=== PATIENT | male | born 1990 | race Caucasian/White ===

== ENCOUNTER 2024-04-10 18:48 | Emergency (ER) | payer OTHER, MEDICAID, SELFPAY ==
[2024-04-10 18:59] VITALS: BP 127/88; PULSE 87; RESP 18; TEMP 36.5; O2SAT 98
[2024-04-10 19:09] VITALS: O2SAT 98
[2024-04-10] MEDS: predniSONE 20 MG TAB 40 MG PO (19:09)
--- NOTE | 2024-04-10 19:09 | ED.GENADUL_ITS ---
Discharge Plan Disposition Patient Disposition: Home Condition: Improving Discharge Details Chief Complaint: RespSymp Clinical Impression: Viral URI Primary Care Provider: Stefany,Local ED Provider: Parker Espinal Home Meds and New Rx's Prescriptions: No Action cephalexin 500 MG capsule 500 mg PO QID Qty: 6 0RF Discharge Instructions Instructions: Upper Respiratory Infection ED Additional Instructions: Please follow with your primary care physician. Please return to the emergency department for any worsening symptoms HPI General Date/Time Provider Initiated Documentation: 04/10/24 18:59 . HPI Narrative: 33-year-old male presents with upper respiratory symptoms cough and congestion over the last couple of days. Of note his family has similar symptomatology. Negative COVID test at home. Related Data Home Medications ?Medication ?Instructions ?Recorded ?Confirmed cephalexin 500 mg capsule 500 mg PO QID #6 caps 12/09/16 12/13/16 Previous Rx's ?Medication ?Instructions ?Recorded cephalexin 500 mg capsule 500 mg PO QID #6 caps 12/09/16 Allergies Allergy/AdvReac Type Severity Reaction Status Date / Time No Known Allergies Allergy Unverified 12/13/16 19:42 General Stated Complaint: RespSymp THIEN: 3 Exam Narrative Exam Narrative: Alert interactive no acute distress Moist mucous membranes tolerating secretions Normal voice no stridor Normal heart sounds no murmurs rubs or gallops Lungs clear bilaterally no wheezes rales or rhonchi Normal tone interactive ambulatory without assistance Course Vital Signs Vital signs: Vital Signs Temperature 36.5 C 04/10/24 18:59 Pulse 87 04/10/24 18:59 Respiratory Rate 18 04/10/24 18:59 Blood Pressure 127/88 04/10/24 18:59 Pulse Oximetry 98 04/10/24 18:59 Temperature 36.5 C 04/10/24 18:59 Temperature Source Temporal Artery Scan 04/10/24 18:59 Pulse 87 04/10/24 18:59 Respiratory Rate 18 04/10/24 18:59 Blood Pressure 127/88 04/10/24 18:59 Pulse Oximetry 98 04/10/24 18:59 Oxygen Delivery Method Room Air 04/10/24 18:59 Oxygen Flow Rate 0 04/10/24 18:59 Pain Level 0 04/10/24 18:59 Medical Decision Making 33-year-old male presents with viral URI, afebrile nontoxic nonhypoxic nontachypneic, normotensive, lungs clear bilaterally no respiratory distress. Of note family with similar symptomatology. Low clinical suspicion for bacterial pneumonia PE ACS or aortic pathology. Trial of steroid. Home care instructions and return precautions given Quality:SDOH Health Related Social Needs: No Data to Display PFSH All Active Problems (Updated 04/10/24 @ 19:11 by Parker Espinal MD) Viral URI (Acute) Social History Smoking risk assessment performed?: No Do you feel safe in your relationship?: Yes
== END 2024-04-10 19:22 | disposition home or self-care (01) ==
LOC: ER 19:26
PROVIDERS: Emergency Provider Emergency Medicine
DX: J06.9 Acute upper respiratory infection, unspecified (principal); B97.89 Other viral agents as the cause of diseases classified elsewhere
CPT/HCPCS: 99283; J7512

== ENCOUNTER 2025-01-11 13:26 | Outpatient (CLI) | payer OTHER, MEDICAID, SELFPAY ==
[2025-01-11 10:34] LABS: Hemoglobin A1C 5.1 % (<5.7)
[2025-01-11 11:08] LABS: ALT 51 U/L (16-63); AST 23 U/L (15-37); Albumin 4.3 g/dL (3.4-5.0); Alkaline Phosphatase 58 U/L (46-116); Anion Gap 6.1 mmol/L (3-11); BUN 10 mg/dL (7-18); Bilirubin, Total 0.5 mg/dL (0.2-1.0); CO2 29.9 mmol/L (21.0-32.0); Calcium 9.6 mg/dL (8.5-10.1); Calculated LDL 96 mg/dL (<100); Chloride 104 mmol/L (98-107); Cholesterol 152 mg/dL (<200); Estimated GFR 90.90 (mL/min/1.73m2); Glucose 98 mg/dL (74-106); HDL Cholesterol 44 mg/dL (>or=40); Potassium 4.2 mmol/L (3.5-5.1); Sodium 140 mmol/L (136-145); TSH (W/Ref FT4) 1.19 uIU/mL (0.36-3.74); Total Protein 8.0 g/dL (6.4-8.2); Triglyceride 61 mg/dL (<150)
== END 2025-01-11 13:27 | disposition home or self-care (01) ==
LOC: LBO 13:27
PROVIDERS: PCP Nurse Practitioner Family; Visit Provider Nurse Practitioner Family
DX: Z13.1 Encounter for screening for diabetes mellitus (principal); E66.9 Obesity, unspecified; E03.9 Hypothyroidism, unspecified; Z13.220 Encounter for screening for lipoid disorders
CPT/HCPCS: 36415; 80053; 80061; 83036; 84443

== ENCOUNTER 2025-04-13 15:35 | Emergency (ER) | payer OTHER, MEDICAID, SELFPAY ==
--- NOTE | 2025-04-13 15:30 | DI.RAD_ITS ---
Exam(s) XR PORTABLE CHEST AP EXAM: XR PORTABLE CHEST AP CLINICAL HISTORY: vomiting TECHNIQUE: 2D digital imaging was performed. COMPARISON: No exams were available for comparison FINDINGS: LUNGS: Clear. No pleural abnormality seen. HEART: Normal size. AORTA: Normal diameter. BONES: Unremarkable for age. Soft tissues: The stomach is not fully included on the exam however appears somewhat distended. IMPRESSION: Question of a distended stomach. DATA REPOSITORY: RADIATION DOSE DELIVERED:
[2025-04-13 15:37] VITALS: BP 99/66; PULSE 106; RESP 18; TEMP 36.4; O2SAT 95
[2025-04-13 15:40] VITALS: BP 99/66; PULSE 106; RESP 18; TEMP 36.4; O2SAT 95
[2025-04-13] MEDS: Normal Saline 1,000 ML 1000 ML IV (16:04)
[2025-04-13] MEDS: Droperidol 5 MG/2 ML VIAL 2.5 MG IVP (16:04)
[2025-04-13 16:07] LABS: Abs Immature Grans 0.01 10^3/uL (0.0-0.06); HCT 45.7 % (40.0-50.0); HGB 16.2 g/dL (13.5-17.5); Immature Grans % 0.2 %; MCH 28.4 pg (27.0-33.0); MCHC 35.4 % (32.0-36.0); MCV 80 fL (80-95); MPV 9.8 fL (8.0-11.0); Platelet Count 258 10^3/uL (130-400); RBC 5.71 10^6/uL (4.36-5.78); RDW 13.2 % (11.8-14.1); RDW-SD 38.1 fL; WBC 5.82 10^3/uL (4.4-10.8)
[2025-04-13 16:40] LABS: ALT 44 U/L (16-63); AST 21 U/L (15-37); Albumin 5.0 g/dL (3.4-5.0); Alkaline Phosphatase 65 U/L (46-116); Anion Gap 12.7 mmol/L (3-11); BUN 17 mg/dL (7-18); Bilirubin, Total 0.7 mg/dL (0.2-1.0); CO2 28.3 mmol/L (21.0-32.0); Calcium 9.5 mg/dL (8.5-10.1); Chloride 97 mmol/L (98-107); Estimated GFR 81.89 (mL/min/1.73m2); Glucose 91 mg/dL (74-106); Potassium 3.5 mmol/L (3.5-5.1); Sodium 138 mmol/L (136-145); Total Protein 9.2 g/dL (6.4-8.2)
--- NOTE | 2025-04-13 23:21 | ED.GENADUL_ITS ---
Discharge Plan Disposition Patient Disposition: Home Discharge Details Clinical Impression: Nausea vomiting and diarrhea Primary Care Provider: Raheem Weinberg ED Provider: Simeon Vigil Home Meds and New Rx's Prescriptions: No Action venlafaxine [Effexor XR] 75 mg capsule,extended release 24hr 75 mg PO DAILY Qty: 90 3RF tirzepatide (weight loss) 5 mg/0.5 mL pen injector 5 mg subcut QWEEK Qty: 2 0RF Rx Instructions: for 4 weeks Discharge Instructions Instructions: Nausea and Vomiting, Adult ED Additional Instructions: Please follow-up with your primary care provider regarding your visit to the emergency department today. Be sure to discuss results of all test performed here today to include radiology, and laboratory testing as well as results for any pending cultures. As discussed, I have suspicion that the tirzepatide that you are taking may be playing a role in your symptoms, I would recommend discontinuing that medication until you are feeling better. Similarly if you are taking antidiarrheal medications like Imodium I would also stop taking those until you are back to your normal self. Should your symptoms worsen, or if you develop new concerning symptoms, please return immediately emergency department for further evaluation. Discharge Data Discharge Date/Time-TO BE ENTERED AT DEPARTURE: 04/13/25 17:54 HPI General Date/Time Provider Initiated Documentation: 04/13/25 15:37 . HPI Narrative: MDM/Narrative: 34-year-old male presents for nausea vomiting diarrhea x 3 days. Vital signs notable for mild tachycardia, abdominal exam reassuring. Suspect viral syndrome versus medication adverse reaction based on history. However will screen for other acute intra-abdominal pathology such as acute appendicitis, SBO. ED course: Labs are unremarkable. Chest x-ray shows significantly distended stomach consistent with delayed gastric MPM likely secondary to patient's weight loss medications. On reassessment patient notes significant improvement of nausea following administration of droperidol. Plan of care discussed with the patient who is agreeable plan for discharge. Clinical impression: Nausea vomiting diarrhea Disposition: Home HPI: The patient is a 34-year-old male presenting with nausea, emesis, and diarrhea persisting for four days. The onset of symptoms occurred on April 10, 2025, initially characterized by the emesis of clear liquid, followed by concurrent emesis and diarrhea on April 11, 2025. He reports intensified borborygmi post-ingestion of water, necessitating immediate defecation. Symptomatic relief is noted in the supine position, with exacerbation upon standing. The patient is afebrile with a recorded temperature of 99?F and denies chills, cough, dysuria, myalgia, or cephalalgia. There is no history of recent illness within the household. The patient has no known drug allergies and has never been hospitalized. Dietary intake included rice and green beans on April 08, 2025, with subsequent emesis of green beans on April 10, 2025. He has been self- administering loperamide (Imodium) and ondansetron (Zofran) without symptomatic relief. The last episode of emesis occurred on April 11, 2025, and he took ondansetron an hour prior to presentation for nausea. He denies hematemesis or melena. The patient commenced semaglutide (Wegovy) for weight management two months ago without adverse effects and started venlafaxine (Effexor) 75 mg two months ago, noting increased daytime fatigue. ROS: Negative besides as mentioned above Exam: Vital signs: Reviewed. General Appearance: Alert and oriented. No acute distress. HEENT: NCAT, EOMI, not icteric. External ears normal. No rhinorrhea. Moist mucous membranes. Neck: Supple, full range of motion, no observable masses, No meningeal sign. Respiratory: No Respiratory distress. No tachypnea. Cardiovascular: Slightly elevated heart rate. Gastrointestinal: Soft, nontender abdomen. Back: No midline tenderness to palpation or palpable step-offs of the C/T/L spine. Skin: Warm and dry, no rash. Neurological: Normal Gait, Grossly intact. Psychiatric: Appropriate for situation. Labs: Laboratory Tests Range/Units 04/13/25 15:00 WBC (4.4-10.8) 10^3/uL 5.82 RBC (4.36-5.78) 10^6/uL 5.71 Hgb (13.5-17.5) g/dL 16.2 Hct (40.0-50.0) % 45.7 MCV (80-95) fL 80 MCH (27.0-33.0) pg 28.4 MCHC (32.0-36.0) % 35.4 RDW (11.8-14.1) % 13.2 Plt Count (130-400) 10^3/uL 258 MPV (8.0-11.0) fL 9.8 Immature Gran % % 0.2 Neutrophils % % 59.1 Lymphocytes % % 27.0 Monocytes % % 8.9 Eosinophils % % 3.8 Basophils % % 1.0 Nucleated RBC % (0.0-0.3) % 0.0 Absolute Neutrophils (1.2-6.7) 10^3/uL 3.44 Absolute Lymphocytes (1.2-3.4) 10^3/uL 1.57 Absolute Monocytes (0.1-0.8) 10^3/uL 0.52 Absolute Eosinophils (0.0-0.7) 10^3/uL 0.22 Absolute Basophils (0.0-0.2) 10^3/uL 0.06 VBG Lactate (<or=2.0) mmol/L 1.0 Sodium (136-145) mmol/L 138 Potassium (3.5-5.1) mmol/L 3.5 Chloride (98-107) mmol/L 97 L Carbon Dioxide (21.0-32.0) mmol/L 28.3 Anion Gap (3-11) mmol/L 12.7 H BUN (7-18) mg/dL 17 Creatinine (0.70-1.30) mg/dL 1.2 Est GFR (CKD-EPI 2020) (mL/min/1.73m2) 81.89 Glucose (74-106) mg/dL 91 Calcium (8.5-10.1) mg/dL 9.5 Total Bilirubin (0.2-1.0) mg/dL 0.7 AST (15-37) U/L 21 ALT (16-63) U/L 44 Alkaline Phosphatase (46-116) U/L 65 Total Protein (6.4-8.2) g/dL 9.2 H Albumin (3.4-5.0) g/dL 5.0 Radiology: Chest x-ray portable AP: No acute cardiopulmonary process, noted stomach distention as read by me Related Data Home Medications ?Medication ?Instructions ?Recorded ?Confirmed venlafaxine 75 mg capsule,extended 75 mg PO DAILY #90 caps 02/26/25 04/13/25 release 24 hr (Effexor XR) tirzepatide (weight loss) 5 mg/0.5 5 mg (0.5 mL) subcu t QWEEK #2 mL 03/10/25 04/13/25 mL subcutaneous pen injector Previous Rx's ?Medication ?Instructions ?Recorded venlafaxine 75 mg capsule,extended 75 mg PO DAILY #90 caps 02/26/25 release 24 hr (Effexor XR) tirzepatide (weight loss) 5 mg/0.5 5 mg (0.5 mL) subcu t QWEEK #2 mL 03/10/25 mL subcutaneous pen injector Allergies Allergy/AdvReac Type Severity Reaction Status Date / Time No Known Allergies Allergy Unverified 04/13/25 15:39 General Stated Complaint: Nausea/Vomit/Diar THIEN: 3 Course Vital Signs Vital signs: Vital Signs Temperature 36.4 C 04/13/25 15:37 Pulse 106 H 04/13/25 15:37 Respiratory Rate 18 04/13/25 15:37 Blood Pressure 99/66 L 04/13/25 15:37 Pulse Oximetry 95 04/13/25 15:37 Temperature 36.4 C 04/13/25 15:40 Temperature Source Oral 04/13/25 15:40 Pulse 106 H 04/13/25 15:40 Respiratory Rate 18 04/13/25 15:40 Blood Pressure 99/66 L 04/13/25 15:40 Pulse Oximetry 95 04/13/25 15:40 Lab/Test Results Lab/Test Results: Laboratory Tests Range/Units 04/13/25 15:00 WBC (4.4-10.8) 10^3/uL 5.82 RBC (4.36-5.78) 10^6/uL 5.71 Hgb (13.5-17.5) g/dL 16.2 Hct (40.0-50.0) % 45.7 MCV (80-95) fL 80 MCH (27.0-33.0) pg 28.4 MCHC (32.0-36.0) % 35.4 RDW (11.8-14.1) % 13.2 Plt Count (130-400) 10^3/uL 258 MPV (8.0-11.0) fL 9.8 Immature Gran % % 0.2 Neutrophils % % 59.1 Lymphocytes % % 27.0 Monocytes % % 8.9 Eosinophils % % 3.8 Basophils % % 1.0 Nucleated RBC % (0.0-0.3) % 0.0 Absolute Neutrophils (1.2-6.7) 10^3/uL 3.44 Absolute Lymphocytes (1.2-3.4) 10^3/uL 1.57 Absolute Monocytes (0.1-0.8) 10^3/uL 0.52 Absolute Eosinophils (0.0-0.7) 10^3/uL 0.22 Absolute Basophils (0.0-0.2) 10^3/uL 0.06 VBG Lactate (<or=2.0) mmol/L 1.0 Sodium (136-145) mmol/L 138 Potassium (3.5-5.1) mmol/L 3.5 Chloride (98-107) mmol/L 97 L Carbon Dioxide (21.0-32.0) mmol/L 28.3 Anion Gap (3-11) mmol/L 12.7 H BUN (7-18) mg/dL 17 Creatinine (0.70-1.30) mg/dL 1.2 Est GFR (CKD-EPI 2020) (mL/min/1.73m2) 81.89 Glucose (74-106) mg/dL 91 Calcium (8.5-10.1) mg/dL 9.5 Total Bilirubin (0.2-1.0) mg/dL 0.7 AST (15-37) U/L 21 ALT (16-63) U/L 44 Alkaline Phosphatase (46-116) U/L 65 Total Protein (6.4-8.2) g/dL 9.2 H Albumin (3.4-5.0) g/dL 5.0 PFSH All Active Problems (Updated 04/13/25 @ 23:24 by Simeon Vigil MD) Nausea vomiting and diarrhea (Acute) Anxiety (Chronic) Obesity (BMI 35.0-39.9 without comorbidity) (Acute) Medical History (Updated 04/13/25 @ 23:24 by Simeon Viigl MD) Leg fracture DVT (deep venous thrombosis) Family History (Updated 12/15/24 @ 12:08 by Tiana Blanco RN) Mother Hypertension Hyperlipidemia Father No problems noted. Brother Cerebral palsy Maternal Grandmother No problems noted. Maternal Grandfather No problems noted. Paternal Grandmother No problems noted. Paternal Grandfather No problems noted. Social History (Updated 12/15/24 @ 12:07 by Tiana Blanco RN) Smoking/Tobacco Use Status: Never Smoking risk assessment performed?: Yes Alcohol Intake: current Alcohol Intake frequency: holidays/special occasions only Drug use: Never Substance use type: does not use Adopted: No Caregiver/Support person: No Household members: spouse and children Housing: house Number of Children: 2 number of grandchildren: 0 Communication Needs: None Education Level: high school Do you need help understanding health information?: Never current occupation: dedicated intermodal truck driver Sexually active: Yes Do you think of yourself as: straight/heterosexual Current gender identity: male What is your relationship status?: How often do you talk on the phone with friends or family?: three or more times per week How often do you get together with friends or relatives?: three or more times per week How often do you attend worship or jehovah's witness services?: decline to answer Do you belong to any clubs or organized social groups?: no Panel score (0-1 are the most socially isolated patients): 2 NHANES result reviewed/action taken: Yes Duration: < 15 minutes/day Frequency: 1-2 times per week Shelli/Cheondoism: None Special shelli needs: No Seatbelt use: always Helmet use: Yes Helmet use: always Drive intox or ride w/intox wagon driver salesperson: No Working smoke detector in home: Yes Carbon monox detector in home: Yes Firearms in home: Yes Firearms unloaded and locked: Yes Do you feel safe at home: Yes Do you feel safe in your relationship?: Yes Victim of physical abuse: No Victim of emotional abuse: No Victim of sexual abuse: No Would you like helpful sources: No PAWSS Have you Been Recently Intoxicated or Drunk Within the Last 30 days?: No Have you Ever Experienced Previous Episodes of Alcohol Withdrawal?: No Have you ever Experienced Withdrawal Seizures?: No Have you ever Experienced Delirium Tremens(DT)s?: No Have you ever undergone Alcohol Rehabilitation Treatment (i.e, inpt ot outpatient treatment programs)?: No Have you ever Experienced Blackouts?: No Have you ever Combined Alcohol with other Downers within the last 90 days?: No Have you ever Combined Alcohol with any other Substance of Abuse during the last 90 days?: No Positive Blood Alcohol level on Presentation? [PCS.BAL]: No Evidence of Increased Autonomic Activity (i.e. HR>120, tremor, sweating, agitation, nausea)?: No Result: 0
== END 2025-04-13 17:54 | disposition home or self-care (01) ==
PROVIDERS: Emergency Provider General Practice; PCP Nurse Practitioner Family
DX: R11.2 Nausea with vomiting, unspecified (principal); R19.7 Diarrhea, unspecified
CPT/HCPCS: 99283; 99284; 36415; 96374; 80053; 96361; 71045; 83605; 85025; J1790

== ENCOUNTER 2025-04-16 20:53 | Emergency (ER) | payer OTHER, MEDICAID, SELFPAY ==
[2025-04-16 20:57] VITALS: BP 121/74; PULSE 95; RESP 19; TEMP 36.4; O2SAT 97
[2025-04-16 21:01] VITALS: PULSE 88; RESP 22; TEMP 36.8; O2SAT 97
--- NOTE | 2025-04-16 21:03 | W.ED.GENAD ---
Discharge Plan Disposition Patient Disposition: Home Condition: Stable Discharge Details Clinical Impression: Gastroenteritis Primary Care Provider: Raheem Weinberg ED Provider: Chavo Gayle Home Meds and New Rx's Prescriptions: New ondansetron 4 mg tablet,disintegrating 4 mg PO Q8H PRNQty: 30 0RF Continued venlafaxine [Effexor XR] 75 mg capsule,extended release 24hr 75 mg PO DAILY Qty: 90 3RF tirzepatide (weight loss) 7.5 mg/0.5 mL pen injector 7.5 mg subcut QWEEK Qty: 2 0RF Rx Instructions: for 4 weeks ondansetron 4 mg tablet,disintegrating 4 mg PO Q8H PRN omeprazole 20 mg capsule,delayed release(DR/EC) 20 mg PO DAILY Discharge Instructions Instructions: Azithromycin (Systemic), Diarrhea, Adult ED Additional Instructions: You were seen in the emergency department for your prolonged diarrhea, you have stopped your injectable weight loss medication that could have been causing this, ondansetron is not helping your nausea but this is not the focal symptom more focused on liquid diarrhea. We have sent off stool samples for bacterial Gram stain as well as C. difficile testing but it is reasonable to trial an empiric regimen for azithromycin for infectious diarrhea as her symptoms have not improved in quite some time. Please stay well-hydrated and nourished, return for any severe acute worsening. Referrals: Raheem Weinberg, [facility] [Primary Care Provider, Medicine] Discharge Data Discharge Date/Time-TO BE ENTERED AT DEPARTURE: 04/16/25 22:40 HPI General Date/Time Provider Initiated Documentation: 04/16/25 21:03. HPI Narrative: 34 year-old male presents to ED today by POV/ambulating with a chief complaint of abdominal pain, nausea/vomiting, diarrhea- all usually within an hour of eating, seen here earlier this week with negative workup with onset for over one week. Quality described as generalized abdominal pain with nausea vomiting and diarrhea, no radiation to dizziness, profound weakness, lack of urine output, chest pain, shortness of breath, cough, fever. Severity is described as moderate. Palliating factors include nothing specific. Provoking factors include nothing specific. Patient not anticoagulated. Related Data Home Medications Medication Instructions Recorded Confirmed venlafaxine 75 mg capsule,extended 75 mg PO DAILY #90 caps 02/26/25 04/19/25 release 24 hr (Effexor XR) tirzepatide (weight loss) 7.5 7.5 mg (0.5 mL) subcut QWEEK #2 mL 04/14/25 04/19/25 mg/0.5 mL subcutaneous pen injector omeprazole 20 mg capsule,delayed 20 mg PO DAILY 04/16/25 04/19/25 release ondansetron 4 mg disintegrating 4 mg PO Q8H PRN 04/16/25 04/19/25 tablet ondansetron 4 mg disintegrating 4 mg PO Q8H PRN #30 tabs 04/16/25 04/19/25 tablet Previous Rx's Medication Instructions Recorded venlafaxine 75 mg capsule,extended 75 mg PO DAILY #90 caps 02/26/25 release 24 hr (Effexor XR) tirzepatide (weight loss) 7.5 7.5 mg (0.5 mL) subcut QWEEK #2 mL 04/14/25 mg/0.5 mL subcutaneous pen injector ondansetron 4 mg disintegrating 4 mg PO Q8H PRN #30 tabs 04/16/25 tablet Allergies Allergy/AdvReac Type Severity Reaction Status Date / Time No Known Allergies Allergy Unverified 04/19/25 13:46 General Stated Complaint: Abd Prob THIEN: 3 Review of Systems All systems reviewed & are unremarkable except as noted in HPI and below Exam Narrative Exam Narrative: GENERAL APPEARANCE: Well-nourished, non-toxic, awake and alert, atraumatic, no acute distress. SKIN: Warm, pink, dry, intact, without rashes/lesions/ulcerations. HEAD: Normocephalic, atraumatic, normal hair distribution for gender/age. EYES: Normal conjunctiva, no exudates on lids/lashes. ENT: Nares patent, no circumoral cyanosis, no facial swelling NECK: Supple, trachea midline, painless cervical ROM. LUNGS/CHEST: Lungs CTA bilaterally, non-labored respirations, normal A/P diameter, symmetrical expansion, no chest wall deformity HEART (CV/PV): Regular rate and rhythm without murmur, no peripheral edema, no JVD. ABDOMEN: Soft, non-distended, no guarding. MSK: Normal ROM, no swelling/deformity to bilateral UEs or LEs, moving all extremities without weakness, no cyanosis, spine midline without tenderness, normal curvature. NEURO: Mental Status AAOx4 - alert to person, place, time, events No facial droop, no forehead involvement. Motor: No focal weakness - strength 5/5 in bilateral UEs and LEs, proximal and distal, symmetric. Sensory: sensation intact to light touch globally. Gait normal: patient ambulated without ataxia into ED room. PSYCH: euthymic, cooperative, pleasant, appropriate speech Course Vital Signs Vital signs: Vital Signs Temperature 36.4 C L 04/16/25 20:57 Pulse 95 H 04/16/25 20:57 Respiratory Rate 19 04/16/25 20:57 Blood Pressure 121/74 04/16/25 20:57 Pulse Oximetry 97 04/16/25 20:57 Temperature 36.4 C L 04/16/25 20:57 Temperature Source Oral 04/16/25 20:57 Pulse 95 H 04/16/25 20:57 Respiratory Rate 19 04/16/25 20:57 Blood Pressure 121/74 04/16/25 20:57 Blood Pressure Position Sitting 04/16/25 20:57 Pulse Oximetry 97 04/16/25 20:57 Oxygen Delivery Method Room Air 04/16/25 20:57 Oxygen Flow Rate 0 04/16/25 20:57 Pain Level 8 04/16/25 20:57 Medical Decision Making This dictation utilizes [id number] dictation software and may contain unedited grammatical errors. 34 year-old male presents to ED today by POV/ambulating with a chief complaint of abdominal pain, nausea/vomiting, diarrhea- all usually within an hour of eating, seen here earlier this week with negative workup with onset for over one week. Quality described as generalized abdominal pain with nausea vomiting and diarrhea, no radiation to dizziness, profound weakness, lack of urine output, chest pain, shortness of breath, cough, fever. Severity is described as moderate. Palliating factors include nothing specific. Provoking factors include nothing specific. Patients' medical history: anxiety. Family and social history: Noncontributory. Pertinent exam findings / vital signs include benign cardiopulmonary exam, nontender abdomen, stable vitals. Differential / pathologies of concern include gastroenteritis, colitis, gastritis. Diagnostic studies of: -CBC, CMP, CRP/ESR, lipase, lactate. - Labs all completely benign Interventions of: -1 L IVF LR, 4 mg IVP Zofran, 1 dose 500 mg azithromycin with continuation of outpatient bacterial gastroenteritis prescription. ED Course/Assessment/Plan: 34-year-old otherwise healthy male presents with 1 week of nausea vomiting and diarrhea, is not improving throughout the entire week, reasonable to give him a trial of 3 days of azithromycin for traveler's diarrhea, his labs have remained unchanged with no leukocytosis developing throughout the week, given prescription for Zofran. Findings not consistent with perforated viscus, peritoneal abdomen, electrolyte abnormality, acute emergent process. Disposition of Gastroenteritis. Patient verbalized understanding of the plan and return to ED criteria and engaged in shared decision making. Medical Records Medical records reviewed: Yes I reviewed the patient's medical records. Lab Data Lab results reviewed: Yes I reviewed the patient's lab results. Labs: Laboratory Tests Range/Units 04/16/25 21:33 WBC (4.4-10.8) 10^3/uL 5.89 RBC (4.36-5.78) 10^6/uL 5.26 Hgb (13.5-17.5) g/dL 14.8 Hct (40.0-50.0) % 42.8 MCV (80-95) fL 81 MCH (27.0-33.0) pg 28.1 MCHC (32.0-36.0) % 34.6 RDW (11.8-14.1) % 13.5 Plt Count (130-400) 10^3/uL 239 MPV (8.0-11.0) fL 10.0 Immature Gran % % 0.2 Neutrophils % % 57.7 Lymphocytes % % 29.9 Monocytes % % 8.8 Eosinophils % % 3.1 Basophils % % 0.3 Nucleated RBC % (0.0-0.3) % 0.0 Absolute Neutrophils (1.2-6.7) 10^3/uL 3.40 Absolute Lymphocytes (1.2-3.4) 10^3/uL 1.76 Absolute Monocytes (0.1-0.8) 10^3/uL 0.52 Absolute Eosinophils (0.0-0.7) 10^3/uL 0.18 Absolute Basophils (0.0-0.2) 10^3/uL 0.02 ESR (0-15) mm/hr 3 VBG Lactate (<or=2.0) mmol/L 0.8 Sodium (136-145) mmol/L 141 Potassium (3.5-5.1) mmol/L 3.6 Chloride (98-107) mmol/L 103 Carbon Dioxide (21.0-32.0) mmol/L 28.1 Anion Gap (3-11) mmol/L 9.9 BUN (7-18) mg/dL 10 Creatinine (0.70-1.30) mg/dL 1.0 Est GFR (CKD-EPI 2020) (mL/min/1.73m2) 101.92 Glucose (74-106) mg/dL 91 Calcium (8.5-10.1) mg/dL 8.9 Magnesium (1.8-2.4) mg/dL 2.1 Total Bilirubin (0.2-1.0) mg/dL 0.6 AST (15-37) U/L 23 ALT (16-63) U/L 51 Alkaline Phosphatase (46-116) U/L 64 C-Reactive Protein (<or=0.5) mg/dL < 0.50 Total Protein (6.4-8.2) g/dL 8.3 H Albumin (3.4-5.0) g/dL 4.5 Lipase (<78) U/L 48 PFSH All Active Problems (Updated 04/16/25 @ 21:38 by FELIPE Razo) Gastroenteritis (Acute) Nausea vomiting and diarrhea (Acute) Anxiety (Chronic) Obesity (BMI 35.0-39.9 without comorbidity) (Acute) Medical History (Updated 04/16/25 @ 21:38 by FELIPE Razo) Leg fracture DVT (deep venous thrombosis) Family History (Updated 12/15/24 @ 12:08 by Tiana Blanco RN) Mother Hypertension Hyperlipidemia Father No problems noted. Brother Cerebral palsy Maternal Grandmother No problems noted. Maternal Grandfather No problems noted. Paternal Grandmother No problems noted. Paternal Grandfather No problems noted. Social History (Updated 12/15/24 @ 12:07 by Tiana Blanco RN) Smoking/Tobacco Use Status: Never Smoking risk assessment performed?: Yes Alcohol Intake: current Alcohol Intake frequency: holidays/special occasions only Drug use: Never Substance use type: does not use Adopted: No Caregiver/Support person: No Household members: spouse and children Housing: house Number of Children: 2 number of grandchildren: 0 Communication Needs: None Education Level: high school Do you need help understanding health information?: Never current occupation: otr owner operator truck driver Sexually active: Yes Do you think of yourself as: straight/heterosexual Current gender identity: male What is your relationship status?: How often do you talk on the phone with friends or family?: three or more times per week How often do you get together with friends or relatives?: three or more times per week How often do you attend buddhist or jain services?: decline to answer Do you belong to any clubs or organized social groups?: no Panel score (0-1 are the most socially isolated patients): 2 NHANES result reviewed/action taken: Yes Duration: < 15 minutes/day Frequency: 1-2 times per week Shelli/Gnosticism: None Special shelli needs: No Seatbelt use: always Helmet use: Yes Helmet use: always Drive intox or ride w/intox otr owner operator truck driver: No Working smoke detector in home: Yes Carbon monox detector in home: Yes Firearms in home: Yes Firearms unloaded and locked: Yes Do you feel safe at home: Yes Do you feel safe in your relationship?: Yes Victim of physical abuse: No Victim of emotional abuse: No Victim of sexual abuse: No Would you like helpful sources: No
[2025-04-16 21:38] LABS: Abs Immature Grans 0.01 10^3/uL (0.0-0.06); HCT 42.8 % (40.0-50.0); HGB 14.8 g/dL (13.5-17.5); Immature Grans % 0.2 %; MCH 28.1 pg (27.0-33.0); MCHC 34.6 % (32.0-36.0); MCV 81 fL (80-95); MPV 10.0 fL (8.0-11.0); Platelet Count 239 10^3/uL (130-400); RBC 5.26 10^6/uL (4.36-5.78); RDW 13.5 % (11.8-14.1); RDW-SD 40.5 fL; WBC 5.89 10^3/uL (4.4-10.8)
[2025-04-16] MEDS: Lactated Ringers 1,000 ML 1000 ML IV (21:40)
[2025-04-16] MEDS: Ondansetron 4 MG/2 ML VIAL IVP (21:41)
[2025-04-16 21:54] LABS: ALT 51 U/L (16-63); AST 23 U/L (15-37); Albumin 4.5 g/dL (3.4-5.0); Alkaline Phosphatase 64 U/L (46-116); Anion Gap 9.9 mmol/L (3-11); BUN 10 mg/dL (7-18); Bilirubin, Total 0.6 mg/dL (0.2-1.0); CO2 28.1 mmol/L (21.0-32.0); Calcium 8.9 mg/dL (8.5-10.1); Chloride 103 mmol/L (98-107); Glucose 91 mg/dL (74-106); Lipase 48 U/L (<78); Magnesium 2.1 mg/dL (1.8-2.4); Potassium 3.6 mmol/L (3.5-5.1); Sodium 141 mmol/L (136-145); Total Protein 8.3 g/dL (6.4-8.2)
[2025-04-16 22:33] LABS: ESR 3 mm/hr (0-15)
[2025-04-16] MEDS: Azithromycin 250 MG TAB 500 MG PO (22:37)
[2025-04-16 22:39] VITALS: BP 119/77; PULSE 66; RESP 18; TEMP 36.7; O2SAT 98
[2025-04-16 22:43] LABS: C-Reactive Protein < 0.50 mg/dL (<or=0.5)
== END 2025-04-16 22:40 | disposition home or self-care (01) ==
PROVIDERS: Emergency Provider Physician Assistant; PCP Nurse Practitioner Family
DX: K52.9 Noninfective gastroenteritis and colitis, unspecified (principal)
CPT/HCPCS: 80053; 83690; 85652; 96361; 96374; 99284; 83605; 83735; 85025; 86140; 99283; J2405

== ENCOUNTER 2025-04-17 14:04 | Outpatient (REF) | payer OTHER, MEDICAID, SELFPAY ==
[2025-04-17 14:57] LABS: EPI 027-NAP1-B1 PRESUMPTIVE NEGATIVE
[2025-04-18 21:05] LABS: Campylobacter PCR Negative (Negative); Shiga Toxin PCR Negative (Negative); Shigella/Enteroinvasive Ecoli Negative (Negative)
== END 2025-04-17 14:05 | disposition home or self-care (01) ==
LOC: LBN 14:04
PROVIDERS: PCP Nurse Practitioner Family; Visit Provider Physician Assistant
DX: K52.9 Noninfective gastroenteritis and colitis, unspecified (principal)
CPT/HCPCS: 87505